=== PATIENT | male | born 1960 | race African-American/Black ===

== ENCOUNTER 2016-12-22 12:46 | Emergency (ER) | payer OTHER, MEDICARE ==
[~2016-12-22] VITALS: Ht 172.7 cm; Wt 99.8 kg
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
[~2016-12-22 12:46] MED LIST: ACETAMINOPHEN PO; ADVAIR 100-501 EAC1 IH; ADVAIR 250-501 EACH INH; ALBUTEROL 0.5ML INH; ALBUTEROL MININEB NEB; ALBUTEROL0.83 MG/ML IH; ALBUTEROL17 GM INH; ANTIVERT PO; ASPIRIN PO; AZITHROMYCIN250 MG PO; AZMACORT20 GM INH; BP MED; CIPRO PO; COLACE PO; COMBIVENT INH14.7 GM INH; COMBIVENT U/D3 ML; COMBIVENT U/D3 ML INH; DOXYCYCLINE HY100 M1 PO; DOXYCYCLINE PO; DUONEB 2.5-0.5 M3 ML NEB; FAMOTIDINE PO; FLEXERIL10 MG PO; FLOVENT HFA12 GM INH; HCTZ PO; HUMIBID L.1 TAB.SR . PO; HYDROCHLOROTHIA25 MG PO; IBUPROFEN PO; IBUPROFEN800 MG PO; LISINOPRIL20 MG PO; LISINOPRIL5 MG; MEDROL DOSEPAK4 MG PO; MEDROL PO; METOPROLOL SUCC25 MG PO; MILK OF MAGNESIA PO; NORVASC PO; PATIENT'S PHARMACY; PREDNISONE PO; QVAR7.3 G1 INH; QVAR7.3 GM INH; ROBAFEN AC SYR120 M1 PO; SYMBICORT80 INH; ULTRAM PO; ZESTORETIC 20/21 TAB PO; ZITHROMAX PO
== END 2016-12-22 16:01 | disposition home or self-care (01) ==
LOC: CED 12:46
DX: S13.4XXA Sprain of ligaments of cervical spine, initial encounter (principal); S46.912A Strain of unspecified muscle, fascia and tendon at shoulder and upper arm level, left arm, initial encounter; I10 Essential (primary) hypertension; V49.50XA Passenger injured in collision with unspecified motor vehicles in traffic accident, initial encounter
CPT/HCPCS: 70450; 72125; 73030; 96372; 99284; J1885